=== PATIENT | female | born 1980 | race Caucasian/White ===

== ENCOUNTER → 2017-01-24 | Day surgery (SDC) | payer OTHER ==
[~2017-01-24] VITALS: Ht 160 cm; Wt 74.8 kg
[~2017-01-24] MED LIST: ATIVAN0.5 M1 PO; PAXIL10 M1 PO; YAZ 28 TABLET1 EACH PO
--- NOTE | 2017-01-24 07:14 | History & Physical Pre-Op ---
General Information and HPI History of Present Illness: This patient is a 36-year-old 2 para 1 LMP 1 month ago presents today for laparoscopic tubal sterilization. She is currently on control pills and desires to further for fertility. She understands that the procedure is permanent and irreversible with a low failure rate and wishes to proceed. Allergies/Medications Allergies: Coded Allergies: No Known Allergies (01/19/17) Home Med list Ethinyl Estradiol/Drospirenone (Yancy 28 Tablet) 0.02 MG-3 MG (24) TABLET 1 TAB PO DAILY CONTROL (Reported) Lorazepam (Ativan) 0.5 MG TABLET 1 TAB PO DAILY NEEDED ANXIETY (Reported) Paroxetine HCl (Paxil) 10 MG TABLET 1 TAB PO DAILY ANXIETY / DEPRESSION ( Reported) Past History Medical History Gastrointestinal: ulcerative colitis Psychiatric: anxiety Surgical History Pertinent Surgical History: jaw surgery Review of Systems Review of Systems Constitutional: Denies: no symptoms, see HPI, chills, diaphoresis, fever, malaise, weakness, unexplained weight loss. EENTM: Denies: no symptoms, see HPI, blurred vision, double vision, visual changes, eye pain, eye drainage, eye tearing, icterus, ear discharge, ear pain, ear redness, hearing changes, nasal congestion, epistaxis, nasal pain, throat pain, throat swelling, mouth pain, tooth pain. Cardiovascular: Denies: no symptoms, see HPI, chest pain, edema, orthopena, palpitations, peripheral edema, syncope. Respiratory: Denies: no symptoms, see HPI, cough, hemoptysis, orthopnea, short of breath, sputum production, stridor, wheezing. GI: Denies: no symptoms, see HPI, abdominal pain, bloating, constipation, diarrhea, distention, bowel incontinence, melena, nausea, bloody stool, changes in stool, vomiting, steatorrhea. Genitourinary: Denies: no symptoms, see HPI, discharge, dysuria, frequency, hematuria, hesitation, nocturia, pain, urgency. Musculoskeletal: Denies: no symptoms, see HPI, back pain, gout, joint pain, joint swelling, muscle pain, muscle stiffness, neck pain. Skin: Denies: no symptoms, see HPI, cysts, change in skin color, change in hair/nails, dryness, erythema, jaundice, lesions, lymphangitis, lumps, moles, rash. Neurological/Psychological: Denies: no symptoms, see HPI, anxiety, ataxia, cognitive dysfunction, confusion, depressed, dementia, emotional problems, headache, numbness, paresthesia, pre- existing deficit, petit mal seizures, tingling, tremors, tonic-clonic seizures, unable to move lower ext, unable to move upper ext, weakness, other. Hematologic/Endocrine: Denies: no symptoms, see HPI, bruising, bleeding, polyuria, polydipsia, other. Immunologic/Allergic: Denies: no symptoms, see HPI, splenectomy, HIV/AIDS, lymphadenopathy, other. All Other Systems: Reviewed and Negative Exam & Diagnostic Data Last 24 Hrs of Vital Signs/I&O HEENT: Normocephalic atraumatic Chest: Clear to auscultation Cardiovascular: Normal S1, S2 Abdomen: Soft nontender no mass Pelvic: Deferred to the OR Extremities: No clubbing cyanosis or edema Assessment/Plan Assessment/Plan: Multi parity, desires permanent sterilization Laparoscopic tubal sterilization Note: Patient understands that the procedure is permanent and irreversible with a low failure rate As Ranked By This Provider Problem List: 1. Multiparity
--- NOTE | 2017-01-30 20:26 | Operative Report ---
Operative/Inv Procedure Report Surgery Date: 01/24/17 Name of Procedure: Laparoscopic tubal sterilization Pre-Operative Diagnosis: Multiparity Post-Operative Diagnosis: Same Estimated Blood Loss: scant Surgeon/[employer]raising Collector: ALLIE TORREZ MD Anesthesia: general endotracheal tube Operative/Procedure Note Note: The patient was brought to the operating room and placed on the OR table in the dorsal supine position. After general anesthesia was successfully administered she was successfully intubated. She was repositioned in the modified dorsal lithotomy prepped and draped in the usual sterile fashion. A weighted speculum was inserted into the vagina with the help of a Adalberto retractor and single-tooth tenaculum was attached to the anterior lip of the cervix. The cervix was then entered with the acorn cannula this was attached to the tenaculum. Weighted speculum was then removed. The surgeon's gloves were changed and attention was paid to the abdomen. An infraumbilical skin incision was made with the scalpel and a Veress needle was placed into the abdominal cavity. The abdomen was insufflated with CO2 gas under high flow and low pressure until an adequate pneumoperitoneum had been achieved. At this point the Veress needle was removed and replaced with a 5 mm disposable trocar. Through the trocar sleeve the camera was placed and noted to be good and anatomic position and hemostasis as well. The patient was placed into Trendelenburg position. A suprapubic stab incision was made with scalpel and a 5 mm disposable trocar was inserted under direct visualization. Through this trocar site the Kleppinger bipolar cautery was placed. Examination of the pelvic organs revealed normal uterus ovaries and fallopian tubes. The right fallopian tube was grasped with the Kleppinger and coagulated in several areas adjacent to each other incorporating 4 cm of tube. Hemostasis was good. Essentially the same procedure was repeated on the left tube with good hemostasis. At the end of the procedure hemostasis was verified and instruments were removed CO2 gas was allowed to escape the abdomen. Skin was closed using 3-0 Polysorb interrupted sutures and dressed. Vaginal and removed patient was then awakened and sent to recovery in good condition. All needle, sponge, and instrument counts were correct at the procedure 2.
== END ==
LOC: STS 03:46
DX: Z30.2 Encounter for sterilization (principal); K51.90 Ulcerative colitis, unspecified, without complications; F17.200 Nicotine dependence, unspecified, uncomplicated
CPT/HCPCS: 81025; J0131; J1100; J1885; J2250; J2405